=== PATIENT | male | born 1960 | race Caucasian/White ===

== ENCOUNTER 2018-07-30 11:57 | Outpatient (CLI) | payer MEDICAID, SELFPAY ==
[2018-07-30 12:47] LABS: HCT 46.6 % (40.0-50.0); Mean Corp. HGB Concentration 34.3 g/dL (32.0-36.0); Mean Corpuscular Hemoglobin 32.2 pg (27.0-33.0); Mean Corpuscular Volume 93.8 fL (80-95); Mean Platelet Volume 9.8 fL (8.0-11.0); Platelet Count 175 x1000/uL (130-400); RBC 4.97 m/cumm (4.50-6.00); RBC Distribution Width 14.6 % (11.8-14.1); White Blood Cell Count 7.79 k/cumm (4.4-10.8)
[2018-07-30 13:25] LABS: ALT 196 U/L (12-78); AST 117 U/L (15-37); Albumin 4.2 g/dL (3.4-5.0); Alkaline Phosphatase 94 U/L (46-116); Anion Gap 5.5 mmol/L (3-11); BUN 14 mg/dL (7-18); Bilirubin, Total 0.9 mg/dL (0.2-1.0); CO2 32.5 mmol/L (21.0-32.0); CREATININE 0.97 mg/dL (0.70-1.30); Calcium 9.4 mg/dL (8.5-10.1); Chloride 100 mmol/L (98-107); Cholesterol 268 mg/dL (50-200); Glucose 161 mg/dL (70-100); HDL Cholesterol 96 mg/dL (40-60); LDL CHOLESTEROL 149 mg/dL (<100); Potassium 4.1 mmol/L (3.5-5.1); Sodium 138 mmol/L (136-145); TSH (W/Ref FT4) 1.41 uIU/mL (0.358-3.74); Total Protein 7.8 g/dL (6.4-8.2); Triglyceride 164 mg/dL (30-150)
== END 2018-07-30 12:17 ==
PROVIDERS: PCP Nurse Practitioner Family; Visit Provider Nurse Practitioner
DX: F41.9 Anxiety disorder, unspecified (principal); R06.02 Shortness of breath
CPT/HCPCS: 36415; 80053; 80061; 83721; 85027; 84443

== ENCOUNTER 2018-08-05 10:47 | Outpatient (CLI) | payer MEDICAID, SELFPAY ==
[2018-08-05 12:17] LABS: ALT 124 U/L (12-78); AST 43 U/L (15-37); Albumin 3.9 g/dL (3.4-5.0); Alkaline Phosphatase 92 U/L (46-116); Bilirubin, Total 0.6 mg/dL (0.2-1.0); GGT 90 U/L (15-85); Total Protein 7.4 g/dL (6.4-8.2)
[2018-08-05 12:18] LABS: Hemoglobin A1C 6.5 % (4.5-6.2)
[2018-08-05 12:25] LABS: Bilirubin, Direct 0.15 mg/dL (0.00-0.20)
[2018-08-06 11:02] LABS: Hepatitis C Ab w Rflx HCV PCR Negative (NEGAT)
== END 2018-08-05 11:07 ==
PROVIDERS: PCP Nurse Practitioner Family; Visit Provider Nurse Practitioner
DX: E11.9 Type 2 diabetes mellitus without complications (principal); R74.0 Nonspecific elevation of levels of transaminase and lactic acid dehydrogenase [LDH]
CPT/HCPCS: 36415; 80076; 86803; 82977; 83036

== ENCOUNTER 2018-08-12 01:00 | Outpatient (CLI) | payer MEDICAID, SELFPAY ==
--- NOTE | 2018-08-12 07:19 | DI.US_ITS ---
SYMPTOMS/DIAGNOSIS: H/O ETOH ABUSE, PERSISTENTLY ELEVATED LFTS, ? CIRRHOSIS, R94.5 ABDOMINAL ULTRASOUND: The liver shows increased echogenicity and a coarse echotexture with decreased through transmission. Some portions of the liver are not visualized. No focal abnormality seen. The findings are consistent with hepatic steatosis. There is no evidence of cholelithiasis or biliary dilatation. The pancreas appears intact as visualized, but the head and tail of the pancreas are not well seen. The kidneys appear unremarkable with no evidence of renal mass, hydronephrosis or nephrolithiasis. Abdominal aorta and IVC are of normal diameter. CONCLUSION: No evidence of cholelithiasis. Probable hepatic steatosis.
== END 2018-08-12 01:20 ==
PROVIDERS: PCP Nurse Practitioner Family; Visit Provider Nurse Practitioner Family
DX: R94.5 Abnormal results of liver function studies (principal); K76.0 Fatty (change of) liver, not elsewhere classified; F10.21 Alcohol dependence, in remission
CPT/HCPCS: 76700

== ENCOUNTER 2018-09-12 11:40 | Outpatient (CLI) | payer MEDICAID, SELFPAY ==
[2018-09-12 12:18] LABS: INR 1.1 (1.0-3.5); Prothrombin Time 10.5 sec (9.3-10.8)
[2018-09-12 13:32] LABS: Iron 115 ug/dL (50-175); Total Iron Binding Capacity 323 ug/dL (250-450); Transferrin Sat 36 % (20-55)
[2018-09-12 13:37] LABS: Ferritin 205 ng/mL (8-388)
[2018-09-13 14:50] LABS: Hepatitis A IgM Ab Negative (Negative)
== END 2018-09-12 12:00 ==
PROVIDERS: PCP Nurse Practitioner Family; Visit Provider Nurse Practitioner Family
DX: R94.5 Abnormal results of liver function studies (principal); K76.0 Fatty (change of) liver, not elsewhere classified; I10 Essential (primary) hypertension
CPT/HCPCS: 36415; 82728; 83540; 83550; 85610; 86709

== ENCOUNTER 2018-09-25 10:38 | Outpatient (CLI) | payer MEDICAID, SELFPAY ==
[2018-09-26 09:45] LABS: HBs Antibody, Quant <3.1 mIU/mL; Hep B Surface Ab Negative; Hepatitis B Core Antibody Negative (NEGAT); Hepatitis B Surface Antigen Negative (NEGAT)
== END 2018-09-25 10:58 ==
PROVIDERS: PCP Nurse Practitioner Family; Visit Provider Nurse Practitioner Family
DX: R94.5 Abnormal results of liver function studies (principal)
CPT/HCPCS: 36415; 86704; 86706; 87340

== ENCOUNTER 2018-10-16 08:37 | Outpatient (CLI) | payer MEDICAID, SELFPAY ==
--- NOTE | 2018-10-16 08:29 | DI.RAD_ITS ---
SYMPTOM/DIAGNOSIS: BILAT HIP PAIN, H/O LT GT FX RIGHT HIP: There are mild degenerative changes involving the right hip joint. There is no evidence of a fracture or dislocation.
== END 2018-10-16 08:57 ==
PROVIDERS: PCP Nurse Practitioner Family; Visit Provider Student in an Organized Health Care Education/Training Program
DX: M25.551 Pain in right hip (principal); M25.552 Pain in left hip
CPT/HCPCS: 73521

== ENCOUNTER 2018-12-15 18:17 | Emergency (ER) | payer MEDICAID, SELFPAY ==
[2018-12-15 18:29] VITALS: BP 144/83; PULSE 74; RESP 14; TEMP 37.2; O2SAT 97
--- NOTE | 2018-12-15 19:14 | DI.CT_ITS ---
SYMPTOMS/DIAGNOSIS: FALL LAST NIGHT, HEADACHE, DEMENTIA CT BRAIN: Noncontrast. There is a normal saucedo/white matter differentiation. The ventricles are intact. No intracranial hemorrhage, midline shift or mass effect is identified. The visualized paranasal sinuses are clear. The mastoid air cells are well pneumatized. There is no evidence of a calvarial fracture. A small left sided scalp hematoma is present. IMPRESSION: No acute intracranial process. CT SCAN OF THE CERVICAL SPINE: Multiple contiguous axial images of the cervical spine were obtained. Sagittal and coronal reformatted images were evaluated on the Siem[employer] workstation. No acute fracture or subluxation is seen. Moderately severe degenerative changes are present throughout the cervical spine. The prevertebral soft tissues are unremarkable. IMPRESSION: No acute fracture or subluxation.
--- NOTE | 2018-12-15 19:14 | DI.RAD_ITS ---
SYMPTOMS/DIAGNOSIS: FALL ON SHOULDER, PAIN LEFT SHOULDER: Five views. No acute fracture or dislocation is seen. There are mild degenerative changes seen at the glenohumeral joint but marked degenerative changes seen at the acromioclavicular joint. IMPRESSION: No acute abnormality.
--- NOTE | 2018-12-15 19:15 | W.ED.GENAD ---
Discharge Plan Disposition Patient Disposition: HOME Discharge Details Chief Complaint: Orthopedic Clinical Impression: Fall, Contusion of left shoulder, initial encounter Primary Care Provider: Lauren Enriquez ED Provider: Evan Gaviria Home Meds and New Rx's Prescriptions: Continued atorvastatin [Lipitor] 40 mg tablet 40 mg PO HS Qty: 90 RF: 3 amlodipine [Norvasc] 5 mg tablet 5 mg PO DAILY Qty: 90 RF: 3 escitalopram oxalate 10 mg tablet 10 mg PO DAILY Qty: 90 RF: 3 multivitamin [Daily Vitamin] 1 EACH tablet 1 ea PO DAILY RF: 0 aspirin 81 MG tablet,delayed release (DR/EC) 81 mg PO DAILY Qty: 90 RF: 3 sildenafil [Viagra] 100 MG tablet 100 mg PO as directed Qty: 5 RF: 12 metformin 1,000 mg tablet 1,000 mg PO BID Qty: 180 RF: 3 Discharge Instructions Instructions: Contusion in Adults (ED), Fall Prevention (ED) Additional Instructions: Use sling as needed for comfort. Take [id number] anti-inflammatory medication (like Advil or ibuprofen) - dose according to label. Please contact your primary care physician to arrange follow-up. Return to the ER for any worsening or new concerning symptoms. Referrals: Lauren Enriquez, ASHER [Primary Care Provider] - Medical Decision Making 58-year-old male with history of dementia who presents after slip and fall on ice yesterday with left shoulder pain and headache. Possible head trauma. X-ray of the left shoulder was reviewed by me, interpreted by radiology: No acute abnormality, advanced arthropathy of the AC joint. CT of the head interpreted by radiology: Superficial scalp injury without intracranial hemorrhage or acute fracture. CT of the cervical spine interpreted by radiology: No acute abnormality. Severe cervical and multilevel foraminal stenosis. Results were reviewed with the patient. Suspect shoulder contusion. Patient was provided a sling. He was advised to perform pendulum shoulder exercises. Usual and customary discharge instructions were provided. HPI General Mode of arrival: ambulatory. Date/Time Provider Initiated Documentation: 12/15/18 18:42. Limitations to Documentation: no limitations. Information obtained by: patient. HPI Narrative: 58-year-old male presents with chief complaint of shoulder pain. Patient notes that last night he slipped and fell on the ice and landed on his left shoulder. He has had pain in his shoulder since the fall. Pain is worse with movement. Patient denies associated numbness. Patient also notes he has some headache. He is unsure if he hit his head last night with a fall. No chest pain. No shortness of breath. No abdominal pain or pelvic pain. No other injury. Related Data Home Medications Medication Instructions Recorded Confirmed multivitamin [Daily Vitamin] 1 ea PO DAILY 01/07/15 12/15/18 aspirin 81 mg PO DAILY #90 tab-cap 11/16/16 12/15/18 sildenafil [Viagra] 100 mg PO as directed #5 tab-cap NS 11/29/17 10/16/18 amlodipine 5 mg tablet 5 mg PO DAILY #90 tab-cap 07/30/18 10/16/18 atorvastatin 40 mg tablet 40 mg PO HS #90 tab-cap 07/30/18 12/15/18 escitalopram 10 mg tablet 10 mg PO DAILY #90 tab 07/30/18 12/15/18 metformin 1,000 mg tablet 1,000 mg PO BID #180 tab-cap 10/11/18 12/15/18 Previous Rx's Medication Instructions Recorded sildenafil [Viagra] 100 mg PO as directed #5 tab-cap NS 11/29/17 amlodipine 5 mg tablet 5 mg PO DAILY #90 tab-cap 07/30/18 atorvastatin 40 mg tablet 40 mg PO HS #90 tab-cap 07/30/18 escitalopram 10 mg tablet 10 mg PO DAILY #90 tab 07/30/18 metformin 1,000 mg tablet 1,000 mg PO BID #180 tab-cap 10/11/18 Allergies Allergy/AdvReac Type Severity Reaction Status Date / Time No Known Allergies Allergy Unverified 10/16/18 08:23 General Stated Complaint: Orthopedic BHANU: 3 Review of Systems Review of Systems All systems reviewed & are unremarkable except as noted in HPI and below PFSH Medical History Type 2 diabetes mellitus without complication, without long-term current use of insulin (Chronic) Hepatic steatosis (Chronic) History of alcohol use disorder (Inactive) Memory impairment (Chronic 04/15/15) Essential hypertension (Chronic 04/15/15) Hyperlipidemia (Chronic 04/15/15) Erectile dysfunction HLD (hyperlipidemia) HTN (hypertension) Right arm fracture T2DM (type 2 diabetes mellitus) Surgical History Colonoscopy - MAC (04/27/17) Total replacement of hip (~1996) Family History Mother Diabetes Essential hypertension Alzheimer disease Arthritis Father Personal history of malignant neoplasm Social History household members: spouse and other details: mother in law number of children: 2 highest education level completed: some college, no degree service: No what type of physical activity do you participate in: walking frequency: 3-4 times per week duration: 15-30 minutes/day Smoking and Tabacco status: Former Tobacco Use alcohol intake: former substance use type: does not use Exam Const General: cooperative and no acute distress HENMT Head: normocephalic and atraumatic Mouth: moist mucous membranes Neck Neck: trachea midline and supple Resp Auscultation: clear to auscultation bilaterally, no rales, no rhonchi and no wheezes Cardio Jugular venous pressure: no JVD Rate: regular rate and not tachycardic Rhythm: regular rhythm GI Palpation: soft, not firm, no guarding, no masses, not rigid and nontender Skin General skin exam: no rashes or lesions noted Neuro General: alert, awake, oriented x3 and tone normal Extrem General: no edema Left upper extremity: shoulder/upper arm Details: tenderness Location: of the A-C joint and of the proximal humerus and abnormal ROM Details: pain with active ROM Details: in ABduction and in extension Course Vital Signs Temperature 37.2 C 12/15/18 18:29 Pulse 74 12/15/18 18:29 Respiratory Rate 14 12/15/18 18:29 Blood Pressure 144/83 H 12/15/18 18:29 Pulse Oximetry 97 12/15/18 18:29 Temperature 37.2 C 12/15/18 18:29 Temperature Source Temporal Artery Scan 12/15/18 18:29 Pulse 74 12/15/18 18:29 Respiratory Rate 14 12/15/18 18:29 Blood Pressure 144/83 H 12/15/18 18:29 Blood Pressure Position Sitting 12/15/18 18:29 Pulse Oximetry 97 12/15/18 18:29 Oxygen Delivery Method Room Air 12/15/18 18:29 Oxygen Flow Rate 0 12/15/18 18:29 Pain Level 10 12/15/18 18:29
--- NOTE | 2018-12-15 20:33 | DI.VRAD_ITS ---
EXAM: CT Head Without Contrast EXAM DATE/TIME: 12/15/2018 7:16 PM CLINICAL HISTORY: 58 years old, male; Injury or trauma; Fall; Initial encounter; Blunt trauma (contusions or hematomas); Consciousness not specified; Injury date: 12/14/18; Injury details: Fell on ice last night, shoulder pain, headache, and dementia TECHNIQUE: Axial computed tomography images of the head/brain without contrast. All CT scans at this facility use at least one of these dose optimization techniques: automated exposure control; mA and/or kV adjustment per patient size (includes targeted exams where dose is matched to clinical indication); or iterative reconstruction. Coronal and sagittal reformatted images were created and reviewed. COMPARISON: CT HEAD WITH/WITHOUT CONTRAST 01/08/2015 10:23 AM FINDINGS: Brain: Normal. No hemorrhage. No significant white matter disease. No edema. Ventricles: Normal. No ventriculomegaly. Bones/joints: Unremarkable. No acute fracture. Sinuses: Visualized sinuses are unremarkable. No acute sinusitis. Mastoid air cells: Visualized mastoid air cells are unremarkable. No mastoid effusion. Soft tissues: Left parietal scalp swelling noted. IMPRESSION: Superficial scalp injury without intra-cranial hemorrhage or acute fracture. EXAM: CT Cervical Spine Without Contrast EXAM DATE/TIME: 12/15/2018 7:16 PM CLINICAL HISTORY: 58 years old, male; Injury or trauma; Fall; Initial encounter; Blunt trauma (contusions or hematomas); Consciousness not specified; Injury date: 12/14/18; Injury details: Fell on ice last night, shoulder pain, headache, and dementia TECHNIQUE: Axial computed tomography images of the cervical spine without intravenous contrast. All CT scans at this facility use at least one of these dose optimization techniques: automated exposure control; mA and/or kV adjustment per patient size (includes targeted exams where dose is matched to clinical indication); or iterative reconstruction. Coronal and sagittal reformatted images were created and reviewed. COMPARISON: CT HEAD WITH/WITHOUT CONTRAST 01/08/2015 10:23 AM FINDINGS: Vertebrae: No acute fracture. Normal alignment. Discs/Spinal canal/Neural foramina: There is severe multilevel central spinal and foraminal stenosis, greatest at C3-4 and C4-5, secondary to disc buldge/osteophytic spurring and uncovertebral spondylosis. Soft tissues: Unremarkable. Lungs: Lung apices are normal. IMPRESSION: No acute abnormality. Severe cervical and multilevel foraminal stenosis. Dictated and Authenticated by: Gissel Roldan MD. Ordering:CHINO Gordon MD
--- NOTE | 2018-12-15 20:34 | DI.VRAD_ITS ---
EXAM: XR Left Shoulder Complete, 2 or More Views EXAM DATE/TIME: 12/15/2018 7:16 PM CLINICAL HISTORY: 58 years old, male; Injury or trauma; Fall; Initial encounter; Blunt trauma (contusions or hematomas; Shoulder; Left; Injury details: Fall on shoulder/pain TECHNIQUE: XR Left shoulder complete 2 or more views. COMPARISON: No relevant prior studies available. FINDINGS: Bones/joints: No acute fracture or dislocation. Advanced arthropathy at the acromioclavicular joint. Mild glenohumeral DJD. Soft tissues: Normal. IMPRESSION: No acute abnormality. Dictated and Authenticated by: Gissel Roldan MD. Ordering:CHINO Gordon MD
--- NOTE | 2018-12-15 20:43 | ED.GENADUL_ITS ---
Discharge Plan Disposition Patient Disposition: HOME Discharge Details Chief Complaint: Orthopedic Clinical Impression: Fall, Contusion of left shoulder, initial encounter Primary Care Provider: Lauren Enriquez ED Provider: Evan Gaviria Home Meds and New Rx's Prescriptions: Continued atorvastatin [Lipitor] 40 mg tablet 40 mg PO HS Qty: 90 RF: 3 amlodipine [Norvasc] 5 mg tablet 5 mg PO DAILY Qty: 90 RF: 3 escitalopram oxalate 10 mg tablet 10 mg PO DAILY Qty: 90 RF: 3 multivitamin [Daily Vitamin] 1 EACH tablet 1 ea PO DAILY RF: 0 aspirin 81 MG tablet,delayed release (DR/EC) 81 mg PO DAILY Qty: 90 RF: 3 sildenafil [Viagra] 100 MG tablet 100 mg PO as directed Qty: 5 RF: 12 metformin 1,000 mg tablet 1,000 mg PO BID Qty: 180 RF: 3 Discharge Instructions Instructions: Contusion in Adults (ED), Fall Prevention (ED) Additional Instructions: Use sling as needed for comfort. Take [id number] anti-inflammatory medication (like Advil or ibuprofen) - dose according to label. Please contact your primary care physician to arrange follow-up. Return to the ER for any worsening or new concerning symptoms. Referrals: Lauren Enriquez, ASHER [Primary Care Provider] - Medical Decision Making 58-year-old male with history of dementia who presents after slip and fall on ic e yesterday with left shoulder pain and headache. Possible head trauma. X-ray of the left shoulder was reviewed by me, interpreted by radiology: No acute abnormality, advanced arthropathy of the AC joint. CT of the head interpreted by radiology: Superficial scalp injury without intracranial hemorrhage or acute fracture. CT of the cervical spine interpreted by radiology: No acute abnormality. Severe cervical and multilevel foraminal stenosis. Results were reviewed with the patient. Suspect shoulder contusion. Patient was provided a sling. He was advised to perform pendulum shoulder exe rcises. Usual and customary discharge instructions were provided. HPI General Mode of arrival: ambulatory . Date/Time Provider Initiated Documentation: 12/15/18 18:42 . Limitations to Documentation: no limitations . Information obtained by: patient . HPI Narrative: 58-year-old male presents with chief complaint of shoulder pain. Patient notes that last night he slipped and fell on the ice and landed on his left shoulder. He has had pain in his shoulder since the fall. Pain is worse with movement. Patient denies associated numbness. Patient also notes he has some headache. He is unsure if he hit his head last night with a fall. No chest pain. No shortness of breath. No abdominal pain or pelvic pain. No other injury. Related Data Home Medications Medication Instructions Recorded Confirmed multivitamin [Daily Vitamin] 1 ea PO DAILY 01/07/15 12/15/18 aspirin 81 mg PO DAILY #90 tab-cap 11/16/16 12/15/18 sildenafil [Viagra] 100 mg PO as directed #5 tab-cap NS 11/29/17 10/16/18 amlodipine 5 mg tablet 5 mg PO DAILY #90 tab-cap 07/30/18 10/16/18 atorvastatin 40 mg tablet 40 mg PO HS #90 tab-cap 07/30/18 12/15/18 escitalopram 10 mg tablet 10 mg PO DAILY #90 tab 07/30/18 12/15/18 metformin 1,000 mg tablet 1,000 mg PO BID #180 tab-cap 10/11/18 12/15/18 Previous Rx's Medication Instructions Recorded sildenafil [Viagra] 100 mg PO as directed #5 tab-cap NS 11/29/17 amlodipine 5 mg tablet 5 mg PO DAILY #90 tab-cap 07/30/18 atorvastatin 40 mg tablet 40 mg PO HS #90 tab-cap 07/30/18 escitalopram 10 mg tablet 10 mg PO DAILY #90 tab 07/30/18 metformin 1,000 mg tablet 1,000 mg PO BID #180 tab-cap 10/11/18 Allergies Allergy/AdvReac Type Severity Reaction Status Date / Time No Known Allergies Allergy Unverified 10/16/18 08:23 General Stated Complaint: Orthopedic BHANU: 3 Review of Systems Review of Systems All systems reviewed & are unremarkable except as noted in HPI and below PFSH Medical History Type 2 diabetes mellitus without complication, without long-term current use of insulin (Chronic) Hepatic steatosis (Chronic) History of alcohol use disorder (Inactive) Memory impairment (Chronic 04/15/15) Essential hypertension (Chronic 04/15/15) Hyperlipidemia (Chronic 04/15/15) Erectile dysfunction HLD (hyperlipidemia) HTN (hypertension) Right arm fracture T2DM (type 2 diabetes mellitus) Surgical History Colonoscopy - MAC (04/27/17) Total replacement of hip (~1996) Family History Mother Diabetes Essential hypertension Alzheimer disease Arthritis Father Personal history of malignant neoplasm Social History household members: spouse and other details: mother in law number of children: 2 highest education level completed: some college, no degree service: No what type of physical activity do you participate in: walking frequency: 3-4 times per week duration: 15-30 minutes/day Smoking and Tabacco status: Former Tobacco Use alcohol intake: former substance use type: does not use Exam Const General: cooperative and no acute distress HENMT Head: normocephalic and atraumatic Mouth: moist mucous membranes Neck Neck: trachea midline and supple Resp Auscultation: clear to auscultation bilaterally, no rales, no rhonchi and no wheezes Cardio Jugular venous pressure: no JVD Rate: regular rate and not tachycardic Rhythm: regular rhythm GI Palpation: soft, not firm, no guarding, no masses, not rigid and nontender Skin General skin exam: no rashes or lesions noted Neuro General: alert, awake, oriented x3 and tone normal Extrem General: no edema Left upper extremity: shoulder/upper arm Details: tenderness Location: of the A- C joint and of the proximal humerus and abnormal ROM Details: pain with active ROM Details: in ABduction and in extension Course Vital Signs Temperature 37.2 C 12/15/18 18:29 Pulse 74 12/15/18 18:29 Respiratory Rate 14 12/15/18 18:29 Blood Pressure 144/83 H 12/15/18 18:29 Pulse Oximetry 97 12/15/18 18:29 Temperature 37.2 C 12/15/18 18:29 Temperature Source Temporal Artery Scan 12/15/18 18:29 Pulse 74 12/15/18 18:29 Respiratory Rate 14 12/15/18 18:29 Blood Pressure 144/83 H 12/15/18 18:29 Blood Pressure Position Sitting 12/15/18 18:29 Pulse Oximetry 97 12/15/18 18:29 Oxygen Delivery Method Room Air 02/17/19 18:29 Oxygen Flow Rate 0 02/17/19 18:29 Pain Level 10 12/15/18 18:29
== END 2018-12-15 20:51 | disposition home or self-care (01) ==
PROVIDERS: Emergency Provider Student in an Organized Health Care Education/Training Program; PCP Nurse Practitioner Family
DX: S40.012A Contusion of left shoulder, initial encounter (principal); R51 Headache; S09.90XA Unspecified injury of head, initial encounter; W00.0XXA Fall on same level due to ice and snow, initial encounter; E11.9 Type 2 diabetes mellitus without complications; Z79.84 Long term (current) use of oral hypoglycemic drugs; I10 Essential (primary) hypertension
CPT/HCPCS: 99284; 70450; 72125; 73030; L3650

== ENCOUNTER 2019-01-01 12:12 | Emergency (ER) | payer MEDICAID, SELFPAY ==
[2019-01-01 12:22] VITALS: BP 147/82; PULSE 80; RESP 14; TEMP 36.8; O2SAT 96
--- NOTE | 2019-01-01 12:46 | DI.RAD_ITS ---
SYMPTOMS/DIAGNOSIS: TRAUMA, FALL 2 DAYS AGO LEFT HIP AND PELVIS: Comparison is 03/11/18. Three views were obtained. No acute fracture or dislocation is seen. There are again seen postsurgical changes of the left total hip replacement. No evidence of hardware failure or fracture is seen. The soft tissues are unremarkable. IMPRESSION: No acute fracture or dislocation.
--- NOTE | 2019-01-01 12:49 | ED.GENADUL_ITS ---
Discharge Plan Disposition Patient Disposition: HOME Condition: Good Discharge Details Chief Complaint: Orthopedic Clinical Impression: Hip hematoma, left Primary Care Provider: Lauren Enriquez ED Provider: Charlie Chu Meds and New Rx's Prescriptions: Continued atorvastatin [Lipitor] 40 mg tablet 40 mg PO HS Qty: 90 RF: 3 amlodipine [Norvasc] 5 mg tablet 5 mg PO DAILY Qty: 90 RF: 3 escitalopram oxalate 10 mg tablet 10 mg PO DAILY Qty: 90 RF: 3 multivitamin [Daily Vitamin] 1 EACH tablet 1 ea PO DAILY RF: 0 aspirin 81 MG tablet,delayed release (DR/EC) 81 mg PO DAILY Qty: 90 RF: 3 sildenafil [Viagra] 100 MG tablet 100 mg PO as directed Qty: 5 RF: 12 metformin 1,000 mg tablet 1,000 mg PO BID Qty: 180 RF: 3 Discharge Instructions Instructions: Hematoma (ED) Additional Instructions: X-ray of your left hip is unremarkable. There are no fractures or dislocations. You have a large hematoma that will take some time to completely resolve. It should not be painful for the entire time but will be painful for the next week or so. Use ice for the next couple of days and then switch over to heat. Tylenol as needed for pain. Follow-up with your primary care in a couple weeks for reevaluation. Return to ED if you develop fever, redness, drainage, inability to walk, other concerns. Referrals: Lauren Enriquez, [employer] [Primary Care Provider] - Medical Decision Making Patient has a large hematoma over the left hip. It is firm and tender. There is no fluctuance. There is no erythema. There is bruising and ecchymosis tracking down. He has decreased range of motion of the hip to some degree but I think it is due to the hematoma. I will get an x-ray of the left hip to make sure the hardware is intact but I do not suspect any pathology. X-ray of the left hip and pelvis are negative for anything acute. There is no fracture per radiology read. I did review the images and agree. Patient to be discharged home to continue Tylenol as needed for pain. Ice for the next day or 2 before switching over to heat. Follow-up with primary care in a couple of weeks if not getting better. Return to ED for increasing pain, fever, drainage, other problems. HPI General Mode of arrival: ambulatory . Date/Time Provider Initiated Documentation: 01/01/19 12:32 . Limitations to Documentation: no limitations . Information obtained by: patient and family . HPI Narrative: Patient slipped and fell on the ice 2 days ago. He landed on his left hip. He denies striking his head. He had no loss of consciousness. He has no neck pain or back pain. He has no chest pain. He is able to ambulate though with a limp. He has developed a large bruise and a firm tender area over the hip. He is concerned because this is the hip that was replaced. He denies other injury. Related Data Home Medications Medication Instructions Recorded Confirmed multivitamin [Daily Vitamin] 1 ea PO DAILY 01/07/15 01/01/19 aspirin 81 mg PO DAILY #90 tab-cap 11/16/16 01/01/19 sildenafil [Viagra] 100 mg PO as directed #5 tab-cap NS 11/29/17 01/01/19 amlodipine 5 mg tablet 5 mg PO DAILY #90 tab-cap 07/30/18 01/01/19 atorvastatin 40 mg tablet 40 mg PO HS #90 tab-cap 07/30/18 01/01/19 escitalopram 10 mg tablet 10 mg PO DAILY #90 tab 07/30/18 01/01/19 metformin 1,000 mg tablet 1,000 mg PO BID #180 tab-cap 10/11/18 01/01/19 Previous Rx's Medication Instructions Recorded sildenafil [Viagra] 100 mg PO as directed #5 tab-cap NS 11/29/17 amlodipine 5 mg tablet 5 mg PO DAILY #90 tab-cap 07/30/18 atorvastatin 40 mg tablet 40 mg PO HS #90 tab-cap 07/30/18 escitalopram 10 mg tablet 10 mg PO DAILY #90 tab 07/30/18 metformin 1,000 mg tablet 1,000 mg PO BID #180 tab-cap 10/11/18 Allergies Allergy/AdvReac Type Severity Reaction Status Date / Time No Known Allergies Allergy Unverified 01/01/19 12:23 General Stated Complaint: Orthopedic BHANU: 3 Review of Systems Constitutional Denies headache(s) and Denies weakness ENT Denies headache(s) and Denies neck pain Cardiovascular Denies chest pain, Denies syncope and Denies dyspnea Respiratory Denies dyspnea Gastrointestinal Denies abdominal pain, Denies nausea and Denies vomiting Musculoskeletal Reports abnormal gait, Denies back pain, Reports limited range of motion and Denies neck pain Integumentary/Breasts Denies erythema and Denies rash Comments: bruise left hip Neurologic Reports abnormal gait, Denies syncope, Denies headache(s), Denies focal weakness and Denies weakness COUNTS INCLUDE 234 BEDS AT THE [facility] Medical History Type 2 diabetes mellitus without complication, without long-term current use of insulin (Chronic) Hepatic steatosis (Chronic) History of alcohol use disorder (Inactive) Memory impairment (Chronic 04/15/15) Essential hypertension (Chronic 04/15/15) Hyperlipidemia (Chronic 04/15/15) Erectile dysfunction (Chronic) Surgical History Colonoscopy - MAC (Inactive 04/27/17) Total replacement of hip (Inactive ~1996) Social History household members: spouse and other details: mother in law number of children: 2 highest education level completed: some college, no degree service: No what type of physical activity do you participate in: walking frequency: 3-4 times per week duration: 15-30 minutes/day Smoking and Tabacco status: Former Tobacco Use alcohol intake: former substance use type: does not use Exam Const General: cooperative and comfortable Orientation: alert and oriented x3 HENMT Head: normocephalic and atraumatic Neck Neck: full ROM, trachea midline and supple Chest Chest: no tenderness Resp Effort & Inspection: normal respiratory effort Auscultation: clear to auscultation bilaterally Cardio Rate: regular rate Rhythm: regular rhythm Heart Sounds: S1 normal and S2 normal Back/Spine/Pelvis Cervical Spine: cervical ROM normal and No cervical spinal tenderness Thoracic/Lumbar Spine: thoraco-lumbar ROM normal, No thoracic spinal tenderness and No lumbar spinal tenderness Skin General skin exam: ecchymosis (left lateral thigh) Trauma: no lacerations or abrasions Neuro General: alert, oriented x3, no focal motor deficits and CN's II-XI intact bilaterally Extrem General: normal exam except as noted Left lower extremity: hip/thigh Details: tenderness, swelling (tennis ball size tender, firm mass left hip) Location: of the hip, abnormal ROM and ecchymosis, knee Details: normal to inspection and normal ROM, lower leg Details: normal to inspection, ankle Details: normal to inspection and normal ROM and foot (NVI distal) Course Vital Signs Temperature 98.2 F 01/01/19 12:22 Pulse 80 01/01/19 12:22 Respiratory Rate 14 01/01/19 12:22 Blood Pressure 147/82 H 01/01/19 12:22 Pulse Oximetry 96 01/01/19 12:22 Temperature 98.2 F 01/01/19 12:22 Temperature Source Temporal Artery Scan 01/01/19 12:22 Pulse 80 01/01/19 12:22 Respiratory Rate 14 01/01/19 12:22 Respiratory Effort Non-Labored 01/01/19 12:33 Blood Pressure 147/82 H 01/01/19 12:22 Pulse Oximetry 96 01/01/19 12:22 Oxygen Delivery Method Room Air 01/01/19 12:22 Oxygen Flow Rate 0 01/01/19 12:22 Pain Level 8 01/01/19 12:22
[2019-01-01 14:19] VITALS: BP 151/85; PULSE 85; RESP 18; TEMP 36.1; O2SAT 97
== END 2019-01-01 14:20 | disposition home or self-care (01) ==
PROVIDERS: Emergency Provider Emergency Medicine; PCP Nurse Practitioner Family
DX: S70.02XA Contusion of left hip, initial encounter (principal); W00.0XXA Fall on same level due to ice and snow, initial encounter
CPT/HCPCS: 99283; 73502; 99282

== ENCOUNTER 2019-04-11 16:07 | Outpatient (CLI) | payer MEDICAID, SELFPAY ==
--- NOTE | 2019-04-11 16:05 | DI.RAD_ITS ---
SYMPTOM/DIAGNOSIS: FALL, ATTENTION TO RT MEDIAL MALLEOLUS, ANKLE SPRAIN S93.409a RIGHT ANKLE: There is soft tissue swelling around the malleoli, medial greater than lateral. No fracture or ankle mortise widening seen. There are mild degenerative changes. No talar dome defect is seen. IMPRESSION: Soft tissue swelling. No evidence of fracture.
== END 2019-04-11 16:27 ==
PROVIDERS: PCP Nurse Practitioner Family; Visit Provider Family Medicine
DX: S93.401A Sprain of unspecified ligament of right ankle, initial encounter (principal); M79.89 Other specified soft tissue disorders
CPT/HCPCS: 73610

== ENCOUNTER 2019-05-22 12:59 | Outpatient (CLI) | payer MEDICAID, SELFPAY ==
--- NOTE | 2019-05-22 12:00 | DI.RAD_ITS ---
SYMPTOMS/DIAGNOSIS: LEFT HIP PAIN POST REPLACEMENT AND FX, M25.552, Z87.81, Z96.642 PELVIS AND LEFT HIP: There are no prior comparison exams. There is a left total hip prosthesis. There is deformity of the acetabulum and some surrounding lucency seen inferiorly. There is also some lucency surrounding the femoral component. There is some cortical thickening near the tip of the femoral component. The findings could indicate loosening. There is no evidence of fracture. The right hip shows mild degenerative changes. IMPRESSION: Left total hip prosthesis with acetabular deformity and question of loosening.
== END 2019-05-22 13:19 ==
PROVIDERS: PCP Nurse Practitioner Family; Visit Provider Nurse Practitioner Family
DX: M25.552 Pain in left hip (principal); Z87.81 Personal history of (healed) traumatic fracture; Z96.642 Presence of left artificial hip joint
CPT/HCPCS: 73502

== ENCOUNTER 2019-06-02 12:40 | Outpatient (CLI) | payer MEDICAID, SELFPAY ==
--- NOTE | 2019-06-02 09:16 | DI.RAD_ITS ---
SYMPTOMS/DIAGNOSIS: HIP PAIN PELVIS: Weight bearing view was performed. Comparison is made with [email or web address]. A left hip prosthesis is again noted, unchanged. There are chronic acetabular deformities. The right hip joint space is well maintained. There is slight leg length discrepancy at the level of the iliac crests.
== END 2019-06-02 13:00 ==
PROVIDERS: PCP Nurse Practitioner Family; Visit Provider Physician Assistant
DX: M25.552 Pain in left hip (principal); G89.29 Other chronic pain; Z96.642 Presence of left artificial hip joint; M21.70 Unequal limb length (acquired), unspecified site
CPT/HCPCS: 72170

== ENCOUNTER 2019-06-05 01:21 | Outpatient (CLI) | payer MEDICAID, SELFPAY ==
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
--- NOTE | 2019-06-05 08:55 | DI.CT_ITS ---
SYMPTOM/DIAGNOSIS: LT HIP PAIN, H/O LD. ? OSTEOLYSIS CT LEFT HIP: 06/05/19 CT examination of the left hip was performed utilizing multislice acquisition and multiplanar reconstruction. The requisition raises the possibility of osteolysis associated with left THR. Total hip joint replacement components do not show evidence of loosening. There is an area of bony loss in the proximal femur which lies anterior to the proximal portion of the femoral component which may represent an area of osteolysis with cortical loss. This measures roughly 3.5 x 2.6 x 1.4 cm Additionally, there is an area of apparent bone loss posterior to the acetabular component measuring about 24 x 17 x 16 mm in diameter and another area of decreased bone density with cortical loss is seen anterolateral to the acetabular component measuring roughly 12 x 16 x23 mm in diameter. 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 No gross component loosening seen. No soft tissue mass or abscess formation identified.
== END 2019-06-05 01:41 ==
PROVIDERS: PCP Nurse Practitioner Family; Visit Provider Student in an Organized Health Care Education/Training Program
DX: M25.552 Pain in left hip (principal); Z96.642 Presence of left artificial hip joint; M89.552 Osteolysis, left thigh; S72.115D Nondisplaced fracture of greater trochanter of left femur, subsequent encounter for closed fracture with routine healing
CPT/HCPCS: 73700; 78315

== ENCOUNTER 2019-10-02 17:50 | Emergency (ER) | payer MEDICARE, MEDICAID, SELFPAY ==
[2019-10-02] VITALS (8 sets, daily range): BP systolic 121–150; BP diastolic 61–85; PULSE 62–92; RESP 16–20; TEMP 36.6–36.7; O2SAT 94–99
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
--- NOTE | 2019-10-02 19:01 | DI.RAD_ITS ---
EXAM: XR SHOULDER LT COMPLETE 2+V INDICATION: pain over left AC. COMPARISON: XR shoulder LT complete 2+V from 12/15/2018 TECHNIQUE: 2D digital imaging was performed. FINDINGS: No acute fracture or dislocation is seen. There are prominent degenerative changes seen at the acrom ioclavicular joint. The soft tissues are unremarkable. The bones are normally mineralized. IMPRESSION: No acute abnormality.
--- NOTE | 2019-10-02 19:11 | DI.VRAD_ITS ---
PROCEDURE INFORMATION: Exam: XR Left Shoulder Exam date and time: 10/02/2019 7:00 PM Age: 59 years old Clinical history: Other: Pain over left ac TECHNIQUE: Imaging protocol: XR Left shoulder. Views: 2 or more views. COMPARISON: CR XR shoulder LT complete 2+V 12/15/2018 7:41 PM FINDINGS: Bones/joints: Moderate to marked degenerative joint disease acromioclavicular joint including periarticular erosions. The extent of surrounding osteophyte appears diminished since the comparison study presumably representing interval acromioplasty. Alternatively the interval change may be projectional. Mild degenerative joint disease glenohumeral joint. No evidence of fracture, dislocation, or other acute abnormality. Soft tissues: Normal. IMPRESSION: Degenerative joint disease predominantly a.c. joint with no fracture seen. Dictated and Authenticated by: Natalio Tatum MD. Ordering:LOPEZ Gallo MD
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
[2019-10-02] MEDS: Normal Saline 1,000 ML 1000 ML IV (21:04)
[2019-10-02 21:14] LABS: Absolute Basophil Count 0.03 k/cumm (0.0-0.2); Absolute Eosinophil Count 0.13 k/cumm (0.0-0.7); Absolute Lymphocyte Count 1.99 k/cumm (1.2-3.4); Absolute Monocyte Count 0.89 k/cumm (0.11-0.7); Absolute Neutrophil Count 5.21 k/cumm (1.2-6.7); Basophils % 0.4; Eosinophils % 1.6; HCT 44.8 % (40.0-50.0); HGB 15.6 g/dL (13.5-17.5); Lymphocytes % 24.1; Mean Corp. HGB Concentration 34.8 g/dL (32.0-36.0); Mean Corpuscular Hemoglobin 32.6 pg (27.0-33.0); Mean Corpuscular Volume 93.7 fL (80-95); Mean Platelet Volume 9.5 fL (8.0-11.0); Monocytes % 10.8; Neutrophils % 63.1; Platelet Count 210 x1000/uL (130-400); RBC 4.78 m/cumm (4.50-6.00); RBC Distribution Width 12.3 % (11.8-14.1); White Blood Cell Count 8.25 k/cumm (4.4-10.8)
[2019-10-02 21:27] LABS: ALT 71 U/L (16-63); AST 28 U/L (15-37); Albumin 3.8 g/dL (3.4-5.0); Alkaline Phosphatase 90 U/L (46-116); Anion Gap 10.9 mmol/L (3-11); BUN 11 mg/dL (7-18); Bilirubin, Total 0.4 mg/dL (0.2-1.0); CO2 29.1 mmol/L (21.0-32.0); CREATININE 0.79 mg/dL (0.70-1.30); Calcium 9.1 mg/dL (8.5-10.1); Chloride 102 mmol/L (98-107); ETHANOL BLOOD 108.2 mg/dL (<3); Glucose 151 mg/dL (74-106); Potassium 3.6 mmol/L (3.5-5.1); Sodium 142 mmol/L (136-145)
[2019-10-02 21:29] LABS: PTT Activated 26.1 sec (21.0-31.4); Prothrombin Time 10.1 sec (9.3-11.0)
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
--- NOTE | 2019-10-02 22:35 | DI.RAD_ITS ---
EXAM: XR CERVICAL SP REYNAGA TRAUMA 2-3V INDICATION: upright AP and lateral film. COMPARISON: No exams were available for comparison TECHNIQUE: 2D digital imaging was performed. FINDINGS: There is straightening of the normal cervical lordosis. This may be due to muscle spasm or patient p ositioning. Moderately severe degenerative changes are seen in the cervical spine. The findings are most marked at the C3-C4 level. C6-C7 and T1 were not well evaluated and on this examination. The prevertebral soft tissues are unremarkable. IMPRESSION: Limited examination of the cervical spine. No acute fractures appreciated on the images. Please ref er to the CT scan of the cervical spine for complete details.
[2019-10-02] MEDS: Omnipaque 350 MG/ML 100 ML BTL IJ (22:41)
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
--- NOTE | 2019-10-02 23:07 | NUR.NOTE ---
2300-cervical collar changed to aspen collar with assistance of EUGENIA Gallo without incident. pt and educated on use/care with verbal understanding. Nursing Note:
== END 2019-10-03 00:55 | disposition home or self-care (01) ==
PROVIDERS: Emergency Provider Physician Assistant; PCP Nurse Practitioner Family
DX: S01.01XA Laceration without foreign body of scalp, initial encounter (principal); S12.591A Other nondisplaced fracture of sixth cervical vertebra, initial encounter for closed fracture; F10.120 Alcohol abuse with intoxication, uncomplicated; Y90.5 Blood alcohol level of 100-119 mg/100 ml; V48.5XXA Car driver injured in noncollision transport accident in traffic accident, initial encounter; E11.9 Type 2 diabetes mellitus without complications; Z79.84 Long term (current) use of oral hypoglycemic drugs; I10 Essential (primary) hypertension
CPT/HCPCS: 36415; 70498; 80053; 96360; 99285; L0172; 70450; 72040; 72125; 73030; 80320; 85025; 85610; 85730; J3490

== ENCOUNTER 2021-05-05 15:00 | Outpatient (CLI) | payer MEDICARE, MEDICAID, SELFPAY ==
--- NOTE | 2021-05-05 15:00 | RT.EKG_ITS ---
APPROVED REPORT Exam: Resting ECG Reason for Exam: assess QT interval to determine whether to Rx Patient Location: O HR:59 bpm ECG Measurements Heart Rate 59 AXIS SC 156 P 50 QRSd 129 QRS -44 QT 439 T 1 QTc 434 Conclusion Sinus bradycardia...rate< 60 Left ventricular hypertrophy...multiple LVH criteria
== END 2021-05-05 15:01 | disposition home or self-care (01) ==
LOC: DI.KIM 15:01
PROVIDERS: PCP Nurse Practitioner Family; Visit Provider Nurse Practitioner Family
DX: Z51.81 Encounter for therapeutic drug level monitoring (principal)
CPT/HCPCS: 93010

== ENCOUNTER 2021-05-27 03:31 | Outpatient (CLI) | payer MEDICARE, MEDICAID, SELFPAY ==
[2021-05-27 10:34] LABS: HCT 47.2 % (40.0-50.0); HGB 15.8 g/dL (13.5-17.5); MCHC 33.5 % (32.0-36.0); MCV 92.5 fL (80-95); MPV 9.5 fL (8.0-11.0); Platelet Count 220 10^3/uL (130-400); RDW 12.2 % (11.8-14.1); WBC 6.64 10^3/uL (4.4-10.8)
[2021-05-27 10:52] LABS: INR 1.1 (0.9-1.1); Prothrombin Time 10.9 sec (9.3-11.0)
[2021-05-27 11:03] LABS: ALT 26 U/L (16-63); AST 22 U/L (15-37); Albumin 4.3 g/dL (3.4-5.0); Alkaline Phosphatase 80 U/L (46-116); Anion Gap 9.6 mmol/L (3-11); BUN 14 mg/dL (7-18); Bilirubin, Total 0.6 mg/dL (0.2-1.0); CO2 30.4 mmol/L (21.0-32.0); CREATININE 0.9 mg/dL (0.70-1.30); Calcium 9.3 mg/dL (8.5-10.1); Calculated LDL 84 mg/dL (<100); Chloride 103 mmol/L (98-107); Cholesterol 158 mg/dL (<200); Glucose 118 mg/dL (74-106); HDL Cholesterol 53 mg/dL (40-60); Potassium 4.1 mmol/L (3.5-5.1); Sodium 143 mmol/L (136-145); Total Protein 7.9 g/dL (6.4-8.2); Triglyceride 108 mg/dL (<150)
[2021-05-28 10:20] LABS: HIV-1/2 Ag & Ab Screen Negative (Negative)
== END 2021-05-27 03:32 | disposition home or self-care (01) ==
LOC: LBO 03:31
PROVIDERS: PCP Nurse Practitioner Family; Visit Provider Nurse Practitioner Family
DX: I10 Essential (primary) hypertension (principal); E78.5 Hyperlipidemia, unspecified; K76.0 Fatty (change of) liver, not elsewhere classified; R79.89 Other specified abnormal findings of blood chemistry; Z11.4 Encounter for screening for human immunodeficiency virus [HIV]
CPT/HCPCS: 36415; 80053; 80061; 85027; 87389; 82043; 82570; 85610

== ENCOUNTER 2021-06-06 14:42 | Outpatient (REF) | payer MEDICARE, MEDICAID, SELFPAY ==
[2021-06-06 19:34] LABS: Abs Immature Grans 0.02 10^3/uL (0.0-0.06); Absolute Basophil Count 0.05 10^3/uL (0.0-0.2); Absolute Eosinophil Count 0.19 10^3/uL (0.0-0.7); Absolute Lymphocyte Count 1.61 10^3/uL (1.2-3.4); Absolute Monocyte Count 0.84 10^3/uL (0.1-0.8); Absolute Neutrophil Count 5.24 10^3/uL (1.2-6.7); Basophils % 0.6; Eosinophils % 2.4; HCT 43.2 % (40.0-50.0); HGB 14.4 g/dL (13.5-17.5); Immature Grans % 0.3; Lymphocytes % 20.3; MCH 30.8 pg (27.0-33.0); MCHC 33.3 % (32.0-36.0); MCV 92.3 fL (80-95); MPV 11.1 fL (8.0-11.0); Monocytes % 10.6; Neutrophils % 65.8; Nucleated RBC 0 %; Platelet Count 218 10^3/uL (130-400); RBC 4.68 10^6/uL (4.36-5.78); WBC 7.95 10^3/uL (4.4-10.8)
[2021-06-06 20:07] LABS: ALT 29 U/L (16-63); AST 25 U/L (15-37); Albumin 4.2 g/dL (3.4-5.0); Alkaline Phosphatase 93 U/L (46-116); Anion Gap 7.4 mmol/L (3-11); BUN 16 mg/dL (7-18); Bilirubin, Total 0.4 mg/dL (0.2-1.0); CO2 30.6 mmol/L (21.0-32.0); Calcium 9.2 mg/dL (8.5-10.1); Chloride 105 mmol/L (98-107); Glucose 177 mg/dL (74-106); Potassium 4.1 mmol/L (3.5-5.1); Sodium 143 mmol/L (136-145); TSH (W/Ref FT4) 0.98 uIU/mL (0.36-3.74); Total Protein 7.7 g/dL (6.4-8.2); Vitamin B12 439 pg/mL (193-986)
== END 2021-06-06 14:43 | disposition home or self-care (01) ==
LOC: LBN 14:42
PROVIDERS: PCP Nurse Practitioner Family; Visit Provider Nurse Practitioner Adult Health
DX: F03.91 Unspecified dementia, unspecified severity, with behavioral disturbance (principal); F32.9 Major depressive disorder, single episode, unspecified; F41.9 Anxiety disorder, unspecified; R41.0 Disorientation, unspecified; R44.1 Visual hallucinations
CPT/HCPCS: 80053; 82607; 84443; 85025